=== PATIENT | male | born 1980 | race Caucasian/White ===

== ENCOUNTER 2019-06-13 | Emergency (ER) | payer BC ==
--- NOTE | 2019-06-13 12:45 | EDPHYS ---
Physician Documentation [facility] Name: Bryan Ocasio Age: 39 yrs Sex: Male : 1980 Arrival Date: 06/13/2019 Time: 12:17 Bed 25 Private MD: ED Physician Maynor Reich HPI: 06/12 12:50 This 39 yrs old Male presents to ER via Unassigned with complaints of Cough, kb Breathing Difficulty. 12:50 The patient or guardian reports cough, that is intermittent, described as moderate, kb with no sputum. Onset: The symptoms/episode began/occurred yesterday. Severity of symptoms: At their worst the symptoms were moderate, in the emergency department the symptoms are unchanged. Modifying factors: The symptoms are alleviated by nothing, the symptoms are aggravated by nothing. Associated signs and symptoms: Pertinent positives: sore throat, Pertinent negatives: chest pain, diarrhea, ear ache, fever, nausea, rhinorrhea, vomiting. The patient has experienced similar episodes in the past. The patient has not recently seen a physician. Pt reports he gets bronchitis twice a year and he felt it starting yesterday. Developed a scratchy throat in the morning that progressed to cough in the afternoon. Reports he coughed all night and had some shortness of breath. Reports wheezing this today that got better after using his albuterol inhaler. Pt smokes cigarettes daily. Historical: - Allergies: 12:45 No Known Allergies; vc - Immunization history:: Adult Immunizations up to date, Flu vaccine is not up to date. Patient has never been vaccinated. - Social history:: Smoking status: Patient reports the use of cigarette tobacco products, smokes one-half pack cigarettes per day. ROS: 12:49 Constitutional: Negative for fever, chills, and weight loss, Neck: Negative for injury, kb pain, and swelling, Cardiovascular: Negative for chest pain, palpitations, and edema, Abdomen/GI: Negative for abdominal pain, nausea, vomiting, diarrhea, and constipation, Back: Negative for injury and pain, MS/Extremity: Negative for injury and deformity, Skin: Negative for injury, rash, and discoloration, Neuro: Negative for headache, weakness, numbness, tingling, and seizure. 12:49 ENT: Positive for sore throat. 12:49 Respiratory: Positive for cough, wheezing, Negative for dyspnea on exertion, hemoptysis, orthopnea, pleurisy, shortness of breath, sputum production. Exam: 12:49 Constitutional: This is a well developed, well nourished patient who is awake, alert, kb and in no acute distress. Head/Face: Normocephalic, atraumatic. ENT: Nares patent. No nasal discharge, no septal abnormalities noted. Tympanic membranes are normal and external auditory canals are clear. Oropharynx with no redness, swelling, or masses, exudates, or evidence of obstruction, uvula midline. Mucous membranes moist. Neck: Trachea midline, no thyromegaly or masses palpated, and no cervical lymphadenopathy. Supple, full range of motion without nuchal rigidity, or vertebral point tenderness. No Meningismus. Chest/axilla: Normal chest wall appearance and motion. Nontender with no deformity. No lesions are appreciated. Cardiovascular: Regular rate and rhythm with a normal S1 and S2. No gallops, murmurs, or rubs. Normal PMI, no JVD. No pulse deficits. Respiratory: Lungs have equal breath sounds bilaterally, clear to auscultation and percussion. No rales, rhonchi or wheezes noted. No increased work of breathing, no retractions or nasal flaring. Abdomen/GI: Soft, non-tender, with normal bowel sounds. No distension or tympany. No guarding or rebound. No evidence of tenderness throughout. Skin: Warm, dry with normal turgor. Normal color with no rashes, no lesions, and no evidence of cellulitis. MS/ Extremity: Pulses equal, no cyanosis. Neurovascular intact. Full, normal range of motion. Neuro: Awake and alert, GCS 15, oriented to person, place, time, and situation. Cranial nerves II-XII grossly intact. Motor strength 5/5 in all extremities. Sensory grossly intact. Cerebellar exam normal. Normal gait. Vital Signs: 12:45 BP 153 / 86; Pulse 108; Resp 16; Temp 98.5; Pulse Ox 95% on R/A; Weight 127.91 kg; vc Height 6 ft. 0 in. (182.88 cm); Pain 0/10; 12:45 Body Mass Index 38.25 (127.91 kg, 182.88 cm) vc MDM: 12:37 Patient medically screened. kb 12:49 Data reviewed: vital signs, nurses notes. Data interpreted: Pulse oximetry: on room air kb is 100 %. Interpretation: normal. Counseling: I had a detailed discussion with the patient and/or guardian regarding: the historical points, exam findings, and any diagnostic results supporting the discharge/admit diagnosis, the need for outpatient follow up, a family practitioner, to return to the emergency department if symptoms worsen or persist or if there are any questions or concerns that arise at home. Administered Medications: No medications were administered Disposition: 13:37 Co-signature as Attending Physician, Maynor Reich MD I agree with the assessment and kdr plan of care. Disposition: 06/13/19 12:44 Discharged to Home. Impression: Bronchitis, not specified as acute or chronic. - Condition is Stable. - Discharge Instructions: Acute Bronchitis, [id number]. - Prescriptions for Tessalon Perles 100 mg Oral Capsule - take 1 capsule by ORAL route every 8 hours As needed; 15 capsule. Zithromax Z- Brandyn 250 mg Oral Tablet - take 1 tablet by ORAL route as directed for 5 days Day 1 - take two (2) tablets one time. Day 2, 3, 4 , 5 take one (1) tablet once daily.; 6 tablet. - Work release form, Medication Reconciliation Form, Thank You Letter, Antibiotic Education, Prescription Opioid Use form. - Follow up: Emergency Department; When: As needed; Reason: Worsening of condition. Follow up: Private Physician; When: 2 - 3 days; Reason: Recheck today's complaints, Continuance of care, Re-evaluation by your physician. Signatures: Florence Rouse, TORI-C DIRECTOR OF OCCUPATIONAL THERAPY-Ckb Maynor Reich MD MD [facility] Leana Avalos RN RN vc Corrections: (The following items were deleted from the chart) 13:02 12:44 06/13/2019 12:44 Discharged to Home. Impression: Bronchitis, not specified as vc acute or chronic. Condition is Stable. Forms are Medication Reconciliation Form, Thank You Letter, Antibiotic Education, Prescription Opioid Use. Follow up: Emergency Department; When: As needed; Reason: Worsening of condition. Follow up: Private Physician; When: 2 - 3 days; Reason: Recheck today's complaints, Continuance of care, Re-evaluation by your physician. kb
--- NOTE | 2019-06-13 13:02 | ER ---
Nurse's Notes [facility] Name: Bryan Ocasio Age: 39 yrs Sex: Male : 1980 Arrival Date: 06/13/2019 Time: 12:17 Bed 25 Private MD: Diagnosis: Bronchitis, not specified as acute or chronic Presentation: 06/12 12:45 Chief complaint: Patient states: "YESTERDAY I STARTED HAVING A COUGH, I GET BRONCHITIS vc TWICE A YEAR SO I WAS WORRIED THIS IS WHAT IT WAS.". Coronavirus screen: The patient has NOT traveled to a country currently being monitored by the [facility] within the last 14 days. Proceed with normal triage procedures. The patient has NOT had contact with any known and/or suspected case of coronavirus. Proceed with normal triage procedures. Ebola Screen: No symptoms or risks identified at this time. 12:45 Method Of Arrival: Ambulatory vc 12:45 Initial Sepsis Screen: Does the patient meet any 2 criteria? No. Patient's initial vc sepsis screen is negative. Does the patient have a suspected source of infection? No. Patient's initial sepsis screen is negative. Risk Assessment: Do you want to hurt yourself or someone else? Patient reports no desire to harm self or others. 12:45 Acuity: JUAN A 4 vc 13:24 Onset of symptoms was June 12, 2019 at 08:00. vc Triage Assessment: 12:45 General: Appears in no apparent distress. uncomfortable, ill, Behavior is calm, vc cooperative, appropriate for age. Respiratory: Reports shortness of breath Onset: The symptoms/episode began/occurred yesterday, the patient has mild shortness of breath. Historical: - Allergies: 12:45 No Known Allergies; vc - Immunization history:: Adult Immunizations up to date, Flu vaccine is not up to date. Patient has never been vaccinated. - Social history:: Smoking status: Patient reports the use of cigarette tobacco products, smokes one-half pack cigarettes per day. Screenin:45 Abuse screen: Denies threats or abuse. Nutritional screening: No deficits noted. vc Tuberculosis screening: No symptoms or risk factors identified. Fall Risk None identified. Sepsis Screening: . Infection:. Assessment: 12:45 Pain: Denies pain. Cardiovascular: Rhythm is regular. Respiratory: Airway is patent vc Respiratory effort is even, unlabored, Breath sounds are clear. Vital Signs: 12:45 BP 153 / 86; Pulse 108; Resp 16; Temp 98.5; Pulse Ox 95% on R/A; Weight 127.91 kg; vc Height 6 ft. 0 in. (182.88 cm); Pain 0/10; 12:45 Body Mass Index 38.25 (127.91 kg, 182.88 cm) vc ED Course: 12:17 Patient arrived in ED. mr 12:32 Florence Rouse FNP-C [facility]. kb 12:32 Maynor Reich MD is Attending Physician. kb 12:36 Leana Avalos, SHANTEL is Primary Nurse. vc 12:45 Arm band placed on. vc 12:45 Patient has correct armband on for positive identification. Bed in low position. Pulse vc ox on. NIBP on. 12:45 No provider procedures requiring assistance completed. Patient did not have IV access vc during this emergency room visit. 13:01 Triage completed. vc Administered Medications: No medications were administered Outcome: 12:44 Discharge ordered by MD. kb 13:00 Discharged to home ambulatory. vc 13:00 Condition: good 13:00 Discharge instructions given to patient, Instructed on discharge instructions, follow up and referral plans. medication usage, Demonstrated understanding of instructions, follow-up care, medications, Prescriptions given X 2. 13:02 Patient left the ED. vc Signatures: Florence Rouse FNP-C FNP-Ckb RiveraNichole mr Leana Avalos, RN RN vc
== END 2019-06-13 13:02 | disposition home or self-care (01) ==
CPT/HCPCS: 99283

== ENCOUNTER 2019-07-11 09:11 | Emergency (ER) | payer BC ==
--- NOTE | 2019-07-11 10:06 | RAD REPORT ---
EXAM DESCRIPTION: RAD - Chest Single View - 07/11/2019 9:43 am CLINICAL HISTORY: CHEST PAIN TECHNIQUE: AP portable chest image was obtained 07/11/2019 9:43 am . FINDINGS: Lungs are clear of focal finding. Interstitial pattern is not outside of normal range. Lar ge body habitus and under penetrated technique accentuate chest findings. . Heart and vasculature are normal. No measurable pleural effusion and no pneumothorax. No acute bony abnormality seen. No acute aortic findings suspected. IMPRESSION: No acute cardiopulmonary process.
[2019-07-11 10:13] LABS: Absolute Lymphocytes (CBC) 1.7 K/uL (0.7-4.9); Basophils % 0.8 % (0-1.3); Hematocrit 44.2 % (39.6-49.0); Lymphocytes % 20.1 % (15.3-44.8); MPV 9.1 fL (7.6-11.3); RBC Red Blood Cell Count 5.02 M/uL (4.33-5.43)
[2019-07-11 10:15] LABS: Protime INR 0.99
[2019-07-11 10:31] LABS: ALT/SGPT 50 U/L (12-78); AST/SGOT 24 U/L (15-37); Albumin 3.9 g/dL (3.4-5.0); Alkaline Phosphatase 93 U/L (45-117); BUN Blood Urea Nitrogen 18 mg/dL (7-18); Bicarbonate 27 mmol/L (21-32); Bilirubin Total 0.5 mg/dL (0.2-1.0); Glucose Level 114 mg/dL (74-106); Magnesium 2.1 mg/dL (1.8-2.4); Potassium 4.2 mmol/L (3.5-5.1); Protein, Total 7.6 g/dL (6.4-8.2); Sodium Level 141 mmol/L (136-145); Troponin (Emerg Dept Use Only) < 0.02 ng/mL (0.0-0.045)
[2019-07-11 10:32] LABS: NT PRO-BNP < 5 pg/mL (<125)
--- NOTE | 2019-07-11 11:09 | ER ---
Nurse's Notes [facility] Name: Bryan Ocasio Age: 39 yrs Sex: Male : 1980 Arrival Date: 07/11/2019 Time: 09:13 Bed 17 Private MD: None, None Diagnosis: Other chest pain Presentation: 07/10 09:23 Chief complaint: Patient states: L sided chest pain that began yesterday, worse w/ deep ph breathing, denies SOB, N/V, also denies recent cough or fever. Coronavirus screen: Patient denies a cough. Patient denies shortness of breath or difficulty breathing. Patient denies measured and/or subjective temperature greater than 100.4F prior to today's visit. Patient denies travel on a cruise ship or to a country the [facility] currently lists as an affected area. Patient denies contact with known and/or suspected case of COVID-19. Ebola Screen: No symptoms or risks identified at this time. Initial Sepsis Screen: Does the patient meet any 2 criteria? No. Patient's initial sepsis screen is negative. Does the patient have a suspected source of infection? No. Patient's initial sepsis screen is negative. Risk Assessment: Do you want to hurt yourself or someone else? Patient reports no desire to harm self or others. Onset of symptoms was July 11, 2019. 09:23 Method Of Arrival: Ambulatory ph 09:23 Acuity: JUAN A 3 ph Historical: - Allergies: : No Known Allergies; ph - Home Meds: : metformin 500 mg Oral tab 1 tab 2 times per day [Active]; omeprazole 40 mg Oral cpDR 1 ph cap once daily [Active]; aspirin 81 mg Oral chew 1 tab once daily [Active]; bupropion HCl 150 mg Oral TbER 1 tab once daily [Active]; lisinopril 10 mg Oral tab 1 tab once daily [Active]; rosuvastatin 40 mg oral tab 1 tab once daily [Active]; - PMHx: :31 Hyperlipidemia; Hypertension; Diabetes - NIDDM; GERD; Depression; ph - Immunization history:: Adult Immunizations unknown. - Social history:: Smoking status: Patient reports the use of cigarette tobacco products, 4-5 cigarettes per day. Screenin:32 Abuse screen: Denies threats or abuse. Denies injuries from another. Nutritional ph screening: No deficits noted. Tuberculosis screening: No symptoms or risk factors identified. Fall Risk None identified. Assessment: 09:40 General: Appears in no apparent distress. comfortable, obese, well groomed, Behavior is ph calm, cooperative, appropriate for age, Denies fever, feeling ill. Pain: Complains of pain in anterior aspect of left upper chest Pain does not radiate. Pain currently is 5 out of 10 on a pain scale. Pain began 1 day ago. Aggravated by deep breathing. Neuro: Level of Consciousness is awake, alert, obeys commands, Oriented to person, place, time, situation. Cardiovascular: Reports chest pain, Denies lightheadedness, nausea, palpitations, shortness of breath, Capillary refill < 3 seconds in bilateral fingers Patient's skin is warm and dry. Rhythm is sinus rhythm Chest pain is located in left anterior chest wall is aggravated by breathing. Respiratory: Airway is patent Respiratory effort is even, unlabored, Respiratory pattern is regular, symmetrical. Derm: Skin is intact, is healthy with good turgor, Skin is pink, warm \T\ dry. Musculoskeletal: Circulation, motion, and sensation intact. Range of motion: intact in all extremities. 10:51 Reassessment: Patient and/or family updated on plan of care and expected duration. Pain ah level reassessed. Patient is alert, oriented x 3, equal unlabored respirations, skin warm/dry/pink. Awaiting lab results. No needs voiced at this time. States that pain is about the same. No change. 11:20 Reassessment: Patient appears in no apparent distress at this time. Patient and/or ph family updated on plan of care and expected duration. Pain level reassessed. Patient is alert, oriented x 3, equal unlabored respirations, skin warm/dry/pink. Pt instructed to follow up w/ cardiology, return to ED for worsening symptoms, d/c home w/ work release. Vital Signs: 09:23 BP 125 / 83; Pulse 82; Resp 18; Temp 97.9; Pulse Ox 99% on R/A; Weight 127.46 kg; ph Height 6 ft. 0 in. (182.88 cm); Pain 5/10; 10:52 BP 118 / 74; Pulse 88; Resp 15; Pulse Ox 97% ; ah 11:20 BP 124 / 78; Pulse 76; Resp 18; Temp 97.9; Pulse Ox 98% on R/A; ph 09:23 Body Mass Index 38.11 (127.46 kg, 182.88 cm) ph ED Course: 09:13 Patient arrived in ED. mr 09:13 None, None is Private Physician. mr 09:14 Francisco Marie MD is Attending Physician. ps1 09:23 Thalia Oconnor RN is Primary Nurse. ph 09:25 Triage completed. ph 09:28 Patient has correct armband on for positive identification. Placed in gown. Bed in low mh5 position. Call light in reach. Side rails up X 1. Warm blanket given. quality assurance monitor chassis on. Pulse ox on. NIBP on. 09:33 Arm band placed on Patient placed in an exam room. ph 09:42 Patient maintains SpO2 saturation greater than 95% on room air. ph 09:43 XRAY Chest (1 view) In Process Unspecified. EDMS 09:50 Missed attempt(s): 22 gauge in right antecubital area. mh5 10:03 Inserted saline lock: 22 gauge in left antecubital area, using aseptic technique. Blood ss collected. 11:07 Patric Blevins MD is Referral Physician. ps1 11:21 No provider procedures requiring assistance completed. IV discontinued, intact, ph bleeding controlled, No redness/swelling at site. Pressure dressing applied. Administered Medications: No medications were administered Outcome: 11:08 Discharge ordered by . ps1 11:21 Discharged to home ambulatory. ph 11:21 Condition: good 11:21 Discharge instructions given to patient, Instructed on discharge instructions, follow up and referral plans. Demonstrated understanding of instructions, follow-up care. 11:21 Patient left the ED. ph Signatures: Dispatcher [employer] [facility] Javon Nichole MaiCelia, RN RN Thalia Oconnor RN RN [place] [id number] Francisco Marie MD MD ps1 Melvina Blevins RN RN Corrections: (The following items were deleted from the chart) 10:55 10:51 Reassessment: Patient and/or family updated on plan of care and expected ah duration. Pain level reassessed. Patient is alert, oriented x 3, equal unlabored respirations, skin warm/dry/pink. Awaiting lab results. No needs voiced at this time
--- NOTE | 2019-07-11 11:10 | EDPHYS ---
Physician Documentation [facility] Name: Bryan Ocasio Age: 39 yrs Sex: Male : 1980 Arrival Date: 07/11/2019 Time: 09:13 Bed 17 Private MD: None, None ED Physician Francisco Marie HPI: 07/10 10:37 This 39 yrs old Male presents to ER via Ambulatory with complaints of Chest ps1 Pain. 10:37 Hx of DM, HTN, HLD. Patient states that he has had pain for a day. Localized to left ps1 substernal chest. Not radiating. Not associated with exertion. No history of ACS. No DVT risk. . Historical: - Allergies: : No Known Allergies; ph - Home Meds: :31 metformin 500 mg Oral tab 1 tab 2 times per day [Active]; omeprazole 40 mg Oral cpDR 1 ph cap once daily [Active]; aspirin 81 mg Oral chew 1 tab once daily [Active]; bupropion HCl 150 mg Oral TbER 1 tab once daily [Active]; lisinopril 10 mg Oral tab 1 tab once daily [Active]; rosuvastatin 40 mg oral tab 1 tab once daily [Active]; - PMHx: 09:31 Hyperlipidemia; Hypertension; Diabetes - NIDDM; GERD; Depression; ph - Immunization history:: Adult Immunizations unknown. - Social history:: Smoking status: Patient reports the use of cigarette tobacco products, 4-5 cigarettes per day. ROS: 10:37 Constitutional: Negative for fever, chills, and weight loss, Eyes: Negative for injury, ps1 pain, redness, and discharge, Respiratory: Negative for shortness of breath, cough, wheezing, and pleuritic chest pain, Abdomen/GI: Negative for abdominal pain, nausea, vomiting, diarrhea, and constipation, MS/Extremity: Negative for injury and deformity, Skin: Negative for injury, rash, and discoloration, Neuro: Negative for headache, weakness, numbness, tingling, and seizure. 10:37 Cardiovascular: Positive for chest pain. 10:37 Psych: Positive for anxiety. Exam: 10:37 Constitutional: This is a well developed, well nourished patient who is awake, alert, ps1 and in no acute distress. Head/Face: Normocephalic, atraumatic. 10:37 Chest/axilla: Inspection: normal. 10:37 Cardiovascular: Rate: normal. 10:37 Respiratory: the patient does not display signs of respiratory distress, Respirations: normal. 10:37 Abdomen/GI: Inspection: abdomen appears normal. 10:37 Psych: Behavior/mood is pleasant, cooperative. Vital Signs: 09:23 BP 125 / 83; Pulse 82; Resp 18; Temp 97.9; Pulse Ox 99% on R/A; Weight 127.46 kg; ph Height 6 ft. 0 in. (182.88 cm); Pain 5/10; 10:52 BP 118 / 74; Pulse 88; Resp 15; Pulse Ox 97% ; ah 11:20 BP 124 / 78; Pulse 76; Resp 18; Temp 97.9; Pulse Ox 98% on R/A; ph 09:23 Body Mass Index 38.11 (127.46 kg, 182.88 cm) ph MDM: 10:16 Patient medically screened. ps1 11:06 HEART Score: History: Moderately Suspicious (1), ECG: Normal (0), Age: < or = 45 years ps1 (0), Risk Factors: > or = 3 Risk factors for atherosclerotic disease (2), Troponin: < or = 1 x Normal Limit (0), Total Score = 3. Data reviewed: vital signs, nurses notes, lab test result(s), EKG, radiologic studies, and as a result, I will discharge patient. Counseling: I had a detailed discussion with the patient and/or guardian regarding: the historical points, exam findings, and any diagnostic results supporting the discharge/admit diagnosis, lab results, radiology results, the need for outpatient follow up, to return to the emergency department if symptoms worsen or persist or if there are any questions or concerns that arise at home. 07/10 09:27 Order name: CBC with Diff; Complete Time: 10:30 ps1 07/10 09:27 Order name: Magnesium; Complete Time: 10:36 ps1 07/10 11:01 Interpretation: Within normal limits: MG 2.1. ps1 07/10 09:27 Order name: NT PRO-BNP; Complete Time: 10:36 ps1 07/10 09:27 Order name: PT-INR; Complete Time: 10:30 ps1 07/10 09:27 Order name: Troponin (emerg Dept Use Only); Complete Time: 10:36 ps1 07/10 11:01 Interpretation: Within normal limits: TROPED < 0.02. ps1 07/10 09:27 Order name: CMP; Complete Time: 10:36 ps1 07/10 09:27 Order name: XRAY Chest (1 view); Complete Time: 10:16 ps1 07/10 09:27 Order name: EKG; Complete Time: 09:29 ps1 07/10 09:27 Order name: Cardiac monitoring; Complete Time: 09:31 ps1 07/10 09:27 Order name: EKG - Nurse/Tech; Complete Time: :43 ps1 07/10 09:27 Order name: IV Saline Lock; Complete Time: 10: ps1 07/10 09:27 Order name: Labs collected and sent; Complete Time: : ps1 07/10 10:07 Order name: D-Dimer; Complete Time: 10:30 EDCO 07/10 09:27 Order name: O2 Per Protocol; Complete Time: :43 ps1 07/10 09:27 Order name: O2 Sat Monitoring; Complete Time: :43 ps1 EC:25 Rate is 73 beats/min. Rhythm is regular. QRS [facility] is Normal. MD interval is normal. QRS ps1 interval is normal. QT interval is normal. No Q waves. T waves are Normal. No ST changes noted. Clinical impression: Normal ECG. Interpreted by me. Administered Medications: No medications were administered Disposition: 07/11/19 11:08 Discharged to Home. Impression: Other chest pain. - Condition is Stable. - Discharge Instructions: Nonspecific Chest Pain. - Work release form, Medication Reconciliation Form, Thank You Letter, Antibiotic Education, Prescription Opioid Use form. - Follow up: Patric Blevins MD; When: 48 Hours; Reason: Recheck today's complaints. Follow up: Emergency Department; When: As needed; Reason: Trouble breathing, Worsening of condition. - Problem is new. - Symptoms are unchanged. Signatures: Dispatcher [employer] [facility] Thalia Oconnor RN RN ph Francisco Marie MD MD ps1 Corrections: (The following items were deleted from the chart) 10:07 09:40 D-DIMER+[id number].LAB.BRZ ordered. [facility] 11:21 11:08 07/11/2019 11:08 Discharged to Home. Impression: Other chest pain. Condition is ph Stable. Forms are Medication Reconciliation Form, Thank You Letter, Antibiotic Education, Prescription Opioid Use. Follow up: Patric Blevins; When: 48 Hours; Reason: Recheck today's complaints. Follow up: Emergency Department; When: As needed; Reason: Trouble breathing, Worsening of condition. Problem is new. Symptoms are unchanged. ps1
[2019-07-11 11:29] VITALS: TEMP 97.9
[2019-07-11 11:31] VITALS: BP 124/78; O2SAT 98
--- NOTE | 2019-07-11 12:50 | EKG ---
Test Date: 2019-07-11 Test Time: 09:25:52 Machine Grinder: RADHA MEASUREMENT RESULTS: Intervals: Rate: 73 MD: 158 QRSD: 84 QT: 376 QTc: 414 [place]: P: 54 MD: 158 QRS: 5 T: 43 INTERPRETIVE STATEMENTS: Normal sinus rhythm Normal ECG No previous ECG available for comparison Electronically Signed On 07-11-19 12:49:35 CDT by Silvestre Dutton
== END 2019-07-11 11:21 | disposition home or self-care (01) ==
LOC: ER 09:11
DX: R07.89 Other chest pain (principal); E11.9 Type 2 diabetes mellitus without complications; E78.5 Hyperlipidemia, unspecified; I10 Essential (primary) hypertension; K21.9 Gastro-esophageal reflux disease without esophagitis; F32.9 Major depressive disorder, single episode, unspecified; F17.210 Nicotine dependence, cigarettes, uncomplicated; Z79.84 Long term (current) use of oral hypoglycemic drugs; Z79.82 Long term (current) use of aspirin; Z79.899 Other long term (current) drug therapy
CPT/HCPCS: 36415; 71045; 80053; 83735; 83880; 84484; 85025; 85379; 85610; 93005; 99285